=== PATIENT | female | born 1970 | race African-American/Black ===

== ENCOUNTER 2023-12-01 15:47 | Outpatient (CLI) | payer OTHER, SELFPAY ==
--- NOTE | 2023-12-01 16:50 | DI.RAD_ITS ---
Exam(s) XR THORACIC SPINE COMPLETE EXAM: XR THORACIC SPINE COMPLETE CLINICAL HISTORY: Thoracic back pain, M54.6. TECHNIQUE: 2D digital imaging was performed. COMPARISON: No exams were available for comparison FINDINGS: 3 views No evidence of compression fractures of the thoracic vertebrae nor disc space narrowing. No signific ant scoliosis. No abnormal widening of the paraspinal lines. Bone density appears normal. No osseo us lesions seen. IMPRESSION: No significant radiograph findings on these views of the thoracic spinal column. DATA REPOSITORY: RADIATION DOSE DELIVERED:
--- NOTE | 2023-12-01 16:50 | DI.RAD_ITS ---
Exam(s) XR CERVICAL SPINE COMP 4-5V EXAM: XR CERVICAL SPINE COMP 4-5V CLINICAL HISTORY: Cervical pain, M54.2-cervicalgia. TECHNIQUE: 2D digital imaging was performed. COMPARISON: No exams were available for comparison FINDINGS: Five views No evidence of fracture, listhesis, nor offset of the spinal laminar line. No prevertebral soft tiss ue swelling. There is mild disc space narrowing at C4-5 and C5-6 levels. No Luschka joint osteophyt es seen at these levels on the oblique views. C6-7 exhibits normal disc height. There are no cervic al ribs. Facet joints unremarkable. Bone density normal. No osseous lesions. IMPRESSION: Some degenerative disc disease noted at C4-5 and C5-6 levels. DATA REPOSITORY: RADIATION DOSE DELIVERED:
--- NOTE | 2023-12-01 16:51 | DI.RAD_ITS ---
Exam(s) XR LUMBAR SPINE COMPLETE EXAM: XR LUMBAR SPINE COMPLETE CLINICAL HISTORY: Lumbar back pain, M54.50. TECHNIQUE: 2D digital imaging was performed. COMPARISON: No exams were available for comparison FINDINGS: Five views. No evidence fractures. However, there is grade 1 anterolisthesis L4 upon L5 related to degenerative facet arthropathy. There is mild disc space narrowing at this level. There is also a more advanced disc space narrowing at L5-S1 level and subtle suggestion of possible pars defects at this level. Th ere is, however, no listhesis at L5-S1 level. Other disc spaces appear unremarkable. There is no scoliosis. Bone density normal. Sacroiliac join ts appear age-appropriate. IMPRESSION: Findings at L4-5 and L5-S1 levels as described above. If clinically indicated further study with MRI can be performed. Incidentally noted are calcifications in the right-side of the abdomen. One of these is over the low er pole the right kidney. Cannot exclude possibility of right renal calculus DATA REPOSITORY: RADIATION DOSE DELIVERED:
== END 2023-12-01 16:07 ==
PROVIDERS: Visit Provider Nurse Practitioner Family
DX: M54.2 Cervicalgia (principal); M54.6 Pain in thoracic spine; M54.50 Low back pain, unspecified
CPT/HCPCS: 72050; 72072; 72110